=== PATIENT | female | born 1985 | race Caucasian/White ===

== ENCOUNTER 2017-03-16 16:44 | Emergency (ER) | payer MEDICARE, MEDICAID ==
[2017-03-16 18:27] VITALS: BP 148/74
--- NOTE | 2017-03-16 19:04 | EDM.PDOC ---
ED HPI GENERAL MEDICAL PROBLEM - General Chief Complaint: ENT Problem Stated Complaint: JAW PAIN/SWELLING Time Seen by Provider: 03/16/17 18:20 Source of Information: Reports: Patient History Limitations: Reports: No Limitations - History of Present Illness INITIAL COMMENTS - FREE TEXT/NARRATIVE: History of present illness: [This 31-year-old female presents complaining of severe toothache and tooth pain. She believes she has an infection and needs antibiotics. She alleges that she has an appointment with the dentist on Monday. She went over her medications with the nurse about the left out one detail that was important and that is the fact that she is on Zubsolv. This medication of course is used for the treatment of narcotic and opioid and heroin addiction. I reviewed the [place] monitoring program and discovered that she was on this medication. She is also on large doses of Xanax. She's had no fever or chills. She states she's had pain for 3 days but today and this afternoon it became unbearable.] Review of systems: As per history of present illness and below otherwise all systems reviewed and negative. Past medical history: As per history of present illness and as reviewed below otherwise noncontributory. Surgical history: As per history of present illness and as reviewed below otherwise noncontributory. Social history: No reported history of drug or alcohol abuse. Family history: As per history of present illness and as reviewed below otherwise noncontributory. Physical exam: HEENT: Atraumatic, normocephalic, pupils reactive, negative for conjunctival pallor or scleral icterus, mucous membranes moist, on examining her face she has no asymmetry or swelling she has no regional lymphadenopathy. She has no obvious cavities she does have fillings present of tooth #17, 18 and 19. She does not have any significant percussion tenderness to these teeth in question. In palpating her cheek with a gloved hand I feel no masses but she winces with pain with my examination throat clear, neck supple, nontender, trachea midline. Lungs: Clear to auscultation, Heart: S1S2, regular, negative for clicks, rubs, or JVD. Abdomen: Soft, nondistended, nontender. Diagnostics: [] Therapeutics: [] Impression: [Jaw pain of uncertain etiology History opioid dependence] Plan: [She's provided with pen VK 500 mg 1 by mouth 4 times a day for 10 days. She is to followup with a dentist on Monday.] Definitive disposition and diagnosis as appropriate pending reevaluation and review of above. 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 ED EXAM, ENT - Physical Exam Exam: See Below Course - Vital Signs Last Recorded V/S: Last Vital Signs Temp 36.4 C 03/16/17 18:27 Pulse 81 03/16/17 18:27 Resp 16 03/16/17 18:27 BP 148/74 H 03/16/17 18:27 Pulse Ox 100 03/16/17 18:27 Departure - Departure Time of Disposition: 19:04 Disposition: Home, Self-Care 01 Condition: good Clinical Impression: Jaw pain Opioid dependence Qualifiers: Substance use status: uncomplicated Qualified Code(s): F11.20 - Opioid dependence, uncomplicated - Discharge Information Forms: ED Department Discharge Additional Instructions: Please followup with the dentist on Monday as we discussed
== END 2017-03-16 19:12 | disposition home or self-care (01) ==
LOC: JP.ED 16:44
DX: R68.84 Jaw pain (principal); F11.20 Opioid dependence, uncomplicated; F17.210 Nicotine dependence, cigarettes, uncomplicated; Z79.899 Other long term (current) drug therapy
CPT/HCPCS: 99283

== ENCOUNTER 2017-10-04 16:38 | Emergency (ER) | payer MEDICARE, MEDICAID ==
[2017-10-04 17:30] VITALS: BP 122/81
[2017-10-04] MEDS ORDERED: ALPRAZolam 0.25 MG Tab PO ONE (18:13)
--- NOTE | 2017-10-04 18:14 | EDM.PDOC ---
ED HPI GENERAL MEDICAL PROBLEM - General Chief Complaint: General Stated Complaint: WANTS XANAX REFILL Time Seen by Provider: 10/04/17 18:14 Source of Information: Reports: Patient History Limitations: Reports: No Limitations - History of Present Illness INITIAL COMMENTS - FREE TEXT/NARRATIVE: pt arrived with a history of being out of her xanax which she uses 2 mg tid. Malcolm Ho perscribes these for her. The appt was rescheduled and malcolm is out of the clinic. She was walked over from the clinic because she was so anxious. Onset: Today Duration: Hour(s):, Other (Pt ran out of her meds today. ) Associated Symptoms: Reports: Other ( pt is crying and very anxious. 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: Psychiatric History: Reports: Anxiety, Depression Social & Family History - Tobacco Use Smoking Status *Q: Heavy Tobacco Smoker Years of Tobacco use: 20 Packs/Tins Daily: 2 Used Tobacco, but Quit: No Second Hand Smoke Exposure: Yes - Caffeine Use Caffeine Use: Reports: Coffee - Recreational Drug Use Recreational Drug Use: No ED ROS GENERAL - Review of Systems Review Of Systems: See Below Constitutional: Reports: No Symptoms HEENT: Reports: No Symptoms Respiratory: Reports: No Symptoms Cardiovascular: Reports: No Symptoms Endocrine: Reports: No Symptoms GI/Abdominal: Reports: No Symptoms : Reports: No Symptoms Musculoskeletal: Reports: No Symptoms Skin: Reports: No Symptoms Neurological: Reports: No Symptoms ED EXAM, GENERAL - Physical Exam Exam: See Below Free Text/Narrative:: pt arrived with anxiety. She waited for 2 hours at the clinic and no one would refill her xanax as her own provider was gone. She was walked to the er for us to deal with this. by this time she was extremely anxious. Exam Limited By: No Limitations General Appearance: Alert, Anxious, Other (pt is crying and she has a 2 year old with her. ) Ears: Normal TMs Ear Exam: Right Ear: Swelling Nose: Normal Inspection Throat/Mouth: Normal Inspection Head: Atraumatic Neck: Normal Inspection Respiratory/Chest: No Respiratory Distress Cardiovascular: Regular Rate, Rhythm, Tachycardia Psychiatric: Anxious, Tearful, Other ( very upset) Course - Vital Signs Last Recorded V/S: Last Vital Signs Temp 36.2 C 10/04/17 17:53 Pulse 93 10/04/17 17:53 Resp 18 10/04/17 17:53 BP 122/81 10/04/17 17:53 Pulse Ox 96 10/04/17 17:53 - Orders/Labs/Meds Meds: Medications Discontinued Medications Generic Name Dose Route Start Last Admin Trade Name Bolivarq PRN Reason Stop Dose Admin Alprazolam 2 mg 10/04/17 18:13 Xanax PO 10/04/17 18:14 ONETIME ONE Departure - Departure Time of Disposition: 18:16 Disposition: Home, Self-Care 01 Condition: Fair Clinical Impression: Has run out of medications - Discharge Information Referrals: Maryann Ho CNM [Primary Care Provider] - Forms: ED Department Discharge Care Plan Goals: keep appt Malcolm Ho xanax 2 mg tid
== END 2017-10-04 18:26 | disposition home or self-care (01) ==
LOC: JP.ED 16:38
DX: F41.9 Anxiety disorder, unspecified (principal); Z79.899 Other long term (current) drug therapy; F17.210 Nicotine dependence, cigarettes, uncomplicated
CPT/HCPCS: 99282; A9270; 99281

== ENCOUNTER 2022-06-07 14:46 | Emergency (ER) | payer MEDICARE, MEDICAID ==
[2022-06-07] MEDS ORDERED: Sodium Chloride 0.9% 10 ML Syringe FLUSH PRN (14:57)
[2022-06-07] MEDS ORDERED: Ketorolac 30 MG/ML SDV IVPUSH ONE (14:57)
[2022-06-07] MEDS ORDERED: fentaNYL 50 MCG/ML SDV IVPUSH ONE (14:58)
[2022-06-07] MEDS ORDERED: Propofol 200 MG/20 ML SDV ONE (16:16)
[2022-06-07 16:37] VITALS: BP 113/68; PULSE 70
== END 2022-06-07 17:48 | disposition home or self-care (01) ==
LOC: JP.ED 14:46
DX: S52.532A Colles' fracture of left radius, initial encounter for closed fracture (principal); W22.09XA Striking against other stationary object, initial encounter
CPT/HCPCS: 25605; 73100; 73110; 96374; 96375; 99283; J1885; J2704; J3010; J3490

== ENCOUNTER 2023-12-11 14:18 | Emergency (ER) | payer MEDICAID, MEDICARE, OTHER ==
[2023-12-11] MEDS: Acetaminophen/HYDROcodone 325-5 MG Tab PO ONE (17:22)
[2023-12-11 17:36] VITALS: BP 100/49; PULSE 77
== END 2023-12-11 18:01 | disposition home or self-care (01) ==
LOC: JP.ED 14:18
DX: S02.69XA Fracture of mandible of other specified site, initial encounter for closed fracture (principal); T74.11XA Adult physical abuse, confirmed, initial encounter
CPT/HCPCS: 70450; 70486; 72125; 73562; 76377; 99284; A9270

== ENCOUNTER 2025-03-12 18:37 | Emergency (ER) | payer MEDICARE, MEDICAID ==
[2025-03-12 19:25] VITALS: BP 124/80; PULSE 83
[2025-03-12 19:56] LABS: APPEARANCE,URINE SLIGHTLY CLOUDY (CLEAR); BILIRUBIN,URINE SMALL (NEGATIVE); COLOR,URINE YELLOW (YELLOW); GLUCOSE,URINE NEGATIVE (NEGATIVE); KETONES,URINE TRACE mg/dL (NEGATIVE); LEUKOCYTE ESTERASE,URINE NEGATIVE (NEGATIVE); NITRITE,URINE NEGATIVE (NEGATIVE); OCCULT BLOOD,URINE NEGATIVE (NEGATIVE); PROTEIN,URINE 100 mg/dL (NEGATIVE); UROBILINOGEN,URINE 0.2 EU/dL (0.2-1.0)
[2025-03-12 19:59] LABS: BASOPHILS PERCENT AUTO 0.3 % (0.1-1.3); EOSINOPHILS ABSOLUTE AUTO 0.08 K/uL (0.00-0.40); EOSINOPHILS PERCENT AUTO 1.2 % (0.0-5.4); HEMATOCRIT 38.9 % (34.3-46.0); HEMOGLOBIN 12.6 g/dL (11.2-15.5); IMMATURE GRAN ABSOLUTE AUTO 0.03 K/uL (0.00-0.23); IMMATURE GRAN PERCENT AUTO 0.4 % (0.0-0.7); LYMPHOCYTES PERCENT AUTO 31.8 % (11.4-47.7); MEAN CORPUSCULAR HEMOGLOBIN 30.1 pg (31.6-35.5); MEAN CORPUSCULAR HGB CONC 32.4 g/dL (31.6-35.5); MEAN CORPUSCULAR VOLUME 92.8 fL (81.4-99.0); MONOCYTES ABSOLUTE AUTO 0.49 K/uL (0.20-0.90); MONOCYTES PERCENT AUTO 7.1 % (3.3-12.6); NEUTROPHILS ABSOLUTE AUTO 4.09 K/uL (1.0-7.6); NEUTROPHILS PERCENT AUTO 59.2 % (40.0-78.1); PLATELET COUNT,PLT 205 K/uL (130-375); RED BLOOD CELL COUNT 4.19 M/uL (3.77-5.24); WHITE BLOOD CELL COUNT,WBC 6.9 K/uL (3.2-11.0)
[2025-03-12 19:59] LABS: AMPHETAMINES SCREEN, URINE PRESUMPTIVE POSITIVE (NEGATIVE); BARBITURATE SCREEN,URINE NEGATIVE (NEGATIVE); BENZODIAZEPINES SCREEN,URINE PRESUMPTIVE POSITIVE (NEGATIVE); METHADONE SCREEN, URINE NEGATIVE (NEGATIVE); METHAMPHETAMINES SCREEN, URINE PRESUMPTIVE POSITIVE (NEGATIVE); OXYCODONE SCREEN,URINE NEGATIVE (NEGATIVE); PROPOXYPHENE SCREEN,URINE NEGATIVE (NEGATIVE); THC SCREEN,URINE 50 NG/ML NEGATIVE (NEGATIVE)
[2025-03-12 20:01] LABS: BASOPHILS ABSOLUTE AUTO 0.02 K/uL (0.00-0.10)
[2025-03-12 20:05] LABS: AMORPHOUS SEDIMENT,URINE NOT SEEN; BACTERIA,URINE FEW; EPITHELIAL CELLS,URINE MANY; MUCUS,URINE MANY; RBC,URINE 0-5 (0-5); WBC,URINE 0-5 (0-5)
[2025-03-12 20:22] LABS: A/G RATIO 1.1 (1.2-2.2); ALANINE AMINOTRANSFERASE,ALT 64 U/L (12-78); ALBUMIN 3.6 g/dL (3.4-5.0); ALKALINE PHOSPHATASE 95 U/L (46-116); ASPARTATE AMNIOTRANSFERASE,AST 128 U/L (15-37); BILIRUBIN TOTAL 0.6 mg/dL (0.2-1.0); BLOOD UREA NITROGEN,BUN 17 mg/dL (7-18); CALCIUM 8.6 mg/dL (8.5-10.1); CARBON DIOXIDE,CO2 33 mmol/L (21-32); CHLORIDE,CL 102 mmol/L (100-108); CREATININE 0.9 mg/dL (0.6-1.0); EST CRCL DRUG DOSING (CG) 83.23 mL/min; ESTIMATED GFR 84 mL/min (>60); GLUCOSE RANDOM 96 mg/dL (74-106); MAGNESIUM 1.8 mg/dL (1.8-2.4); POTASSIUM,K 3.4 mmol/L (3.6-5.2); PROTEIN TOTAL,TP 6.8 g/dL (6.4-8.2); SODIUM,NA 143 mmol/L (140-148)
[2025-03-12 20:24] LABS: ANION GAP 11.4 mmol/L (5.0-14.0)
== END 2025-03-12 22:00 | disposition home or self-care (01) ==
LOC: JP.ED 18:37
DX: F15.90 Other stimulant use, unspecified, uncomplicated (principal); F13.90 Sedative, hypnotic, or anxiolytic use, unspecified, uncomplicated; Z87.891 Personal history of nicotine dependence; Z79.899 Other long term (current) drug therapy
CPT/HCPCS: 36415; 70450; 80053; 80305-QW; 80307; 81001; 81025; 83735; 85025; 99285

== ENCOUNTER 2025-04-07 01:23 | Emergency (ER) | payer MEDICARE, MEDICAID ==
[2025-04-07 01:44] VITALS: PULSE 105
[2025-04-07 02:12] LABS: BASOPHILS PERCENT AUTO 0.2 % (0.1-1.3); EOSINOPHILS PERCENT AUTO 1.1 % (0.0-5.4); HEMATOCRIT 41.7 % (34.3-46.0); HEMOGLOBIN 13.5 g/dL (11.2-15.5); IMMATURE GRAN ABSOLUTE AUTO 0.05 K/uL (0.00-0.23); IMMATURE GRAN PERCENT AUTO 0.6 % (0.0-0.7); LYMPHOCYTES PERCENT AUTO 17.1 % (11.4-47.7); MEAN CORPUSCULAR HEMOGLOBIN 29.7 pg (31.6-35.5); MEAN CORPUSCULAR HGB CONC 32.4 g/dL (31.6-35.5); MEAN CORPUSCULAR VOLUME 91.9 fL (81.4-99.0); MONOCYTES PERCENT AUTO 5.7 % (3.3-12.6); NEUTROPHILS ABSOLUTE AUTO 6.62 K/uL (1.0-7.6); NEUTROPHILS PERCENT AUTO 75.3 % (40.0-78.1); PLATELET COUNT,PLT 298 K/uL (130-375); RED BLOOD CELL COUNT 4.54 M/uL (3.77-5.24); WHITE BLOOD CELL COUNT,WBC 8.8 K/uL (3.2-11.0)
[2025-04-07 02:23] LABS: BASOPHILS ABSOLUTE AUTO 0.02 K/uL (0.00-0.10)
[2025-04-07 02:30] LABS: ALANINE AMINOTRANSFERASE,ALT 23 U/L (12-78); ALBUMIN 3.7 g/dL (3.4-5.0); ALKALINE PHOSPHATASE 97 U/L (46-116); ANION GAP 5.5 mmol/L (5.0-14.0); ASPARTATE AMNIOTRANSFERASE,AST 17 U/L (15-37); BILIRUBIN TOTAL 0.4 mg/dL (0.2-1.0); BLOOD UREA NITROGEN,BUN 14 mg/dL (7-18); CALCIUM 9.5 mg/dL (8.5-10.1); CARBON DIOXIDE,CO2 31 mmol/L (21-32); CHLORIDE,CL 104 mmol/L (100-108); CREATININE 0.8 mg/dL (0.6-1.0); EST CRCL DRUG DOSING (CG) 93.63 mL/min; ESTIMATED GFR 97 mL/min (>60); GLUCOSE RANDOM 119 mg/dL (74-106); POTASSIUM,K 3.8 mmol/L (3.6-5.2); PROTEIN TOTAL,TP 7.3 g/dL (6.4-8.2); SODIUM,NA 140 mmol/L (140-148)
[2025-04-07 03:53] VITALS: BP 116/73
== END 2025-04-07 04:24 ==
LOC: JP.ED 01:23
DX: F10.239 Alcohol dependence with withdrawal, unspecified (principal)
CPT/HCPCS: 36415; 80053; 80307; 85025; 99284; 99285